=== PATIENT | male | born 1955 | race Caucasian/White ===

== ENCOUNTER 2017-07-09 11:35 | Inpatient (IN) | payer OTHER ==
[2017-07-08 13:03] LABS: HEMATOCRIT 48.1 % (39.2-51.8); HEMOGLOBIN 16.9 g/dL (13.7-18.0); WHITE BLOOD COUNT 5.4 x10^3/uL (3.4-10)
[2017-07-08 13:15] LABS: BLOOD UREA NITROGEN 11 mg/dL (7-18)
[~2017-07-09] VITALS: Ht 167.6 cm; Wt 94.9 kg
[~2017-07-09 11:35] MED LIST: IBUP200C8 PO; VITA1CAP PO; magnesium PO; potassium PO
[2017-07-09] MEDS ORDERED: ROPivacaine/PF 0.2%, 10 ML ONE (12:51)
[2017-07-09] MEDS ORDERED: KETOROLAC 60 MG/2 ML ONE (12:51)
[2017-07-09] MEDS ORDERED: TRANEXAMIC ACID 100 MG/ML, 10ML ONE ×2 (12:51→15:36)
[2017-07-09] MEDS ORDERED: morphine SULFATE/PF 1 MG/ML, 10ML ONE (12:52)
[2017-07-09] MEDS ORDERED: EPINEPHRINE 1 MG/ML, 1ML ONE (12:52)
[2017-07-09] MEDS ORDERED: LACTATED RINGERS 1,000 ML IV SCH (14:49)
[2017-07-09] MEDS ORDERED: VANCOMYCIN PER PHARMACY MC ONE (14:49)
[2017-07-09 14:51] VITALS: BP 159/105
[2017-07-09] MEDS ORDERED: PHARMACOKINETIC CONSULTATION MC ONE (15:00)
[2017-07-09] MEDS ORDERED: VANCOMYCIN 2,000 MG in SODIUM CHLORIDE 0.9% 500 ML IV ONE (15:00)
[2017-07-09] MEDS ORDERED: FENTANYL PF 100 MCG/2ML ONE ×3 (15:09→17:29)
[2017-07-09] MEDS ORDERED: MIDAZOLAM 1 MG/ML, 2ML ONE (15:09)
[2017-07-09] MEDS ORDERED: HYDROcodone/APAP 7.5-325MG/15ML UDC PO PRN (16:00)
[2017-07-09] MEDS ORDERED: MEPERIDINE/PF 25MG/0.5ML IVPush PRN (16:00)
[2017-07-09] MEDS ORDERED: LABETALOL 5MG/ML, 20ML IV PRN (16:00)
[2017-07-09] MEDS ORDERED: METOPROLOL 1 MG/ML, 5ML IV PRN (16:00)
[2017-07-09] MEDS ORDERED: ONDANSETRON 2MG/ML, 2ML IVPush PRN ×2 (16:00→19:00)
[2017-07-09] MEDS ORDERED: ALBUTEROL SULFATE 2.5 MG/3 ML NPPB PRN (16:00)
[2017-07-09] MEDS ORDERED: OXYcodone 5 MG/5 ML ORAL.SOL UDC PO PRN (16:00)
[2017-07-09] MEDS ORDERED: MIDAZOLAM 1 MG/ML, 2ML IV PRN (16:00)
[2017-07-09] MEDS ORDERED: ACETAMINOPHEN 325 MG TABLET PO PRN ×2 (16:00→19:00)
[2017-07-09] MEDS ORDERED: PROMETHAZINE 25 MG/ML, 1ML IV PRN (16:00)
[2017-07-09] MEDS ORDERED: DIAZEPAM 5 MG/ML, 2ML IVPush PRN (16:00)
[2017-07-09] MEDS ORDERED: EPHEDRINE 50 MG/ML, 1ML IVPush PRN (16:00)
[2017-07-09] MEDS ORDERED: hydrALAzine 20 MG/ML, 1ML IV PRN (16:00)
[2017-07-09] MEDS ORDERED: DEXAMETHASONE 4 MG/ML, 1ML ONE (16:46)
[2017-07-09] MEDS ORDERED: CEFAZOLIN 1,000 MG ONE (16:46)
[2017-07-09] MEDS ORDERED: ONDANSETRON 2MG/ML, 2ML ONE ×2 (16:46→18:11)
[2017-07-09] MEDS ORDERED: PROPOFOL 10 MG/ML, 20ML ONE (16:46)
[2017-07-09] MEDS ORDERED: ACETAMINOPHEN 650 MG/20.3 ML UDC ONE (17:29)
[2017-07-09] MEDS: FENTANYL PF 100 MCG/2ML IV PRN ×2 (17:30→17:40)
[2017-07-09] MEDS ORDERED: OXYcodone 5 MG/5 ML ORAL.SOL UDC ONE (17:30)
[2017-07-09] MEDS ORDERED: HYDROmorphone 1 MG/ML, 1ML ONE (17:47)
[2017-07-09] MEDS: HYDROmorphone 1 MG/ML, 1ML IV PRN ×2 (17:49→17:55)
[2017-07-09 19:00] VITALS: BP 122/78
[2017-07-09] MEDS ORDERED: CEFAZOLIN PMX 2GM/50ML 50 ML IVPB SCH (19:00)
[2017-07-09] MEDS ORDERED: MAGNESIUM HYDROXIDE 8%, 30ML UDC PO PRN (19:00)
[2017-07-09] MEDS ORDERED: PROMETHAZINE 25 MG/ML, 1ML IM PRN (19:00)
[2017-07-09] MEDS ORDERED: DIPHENHYDRAMINE 25 MG CAPSULE PO PRN (19:00)
[2017-07-09] MEDS ORDERED: LORazepam 2 MG/ML, 1ML IV PRN (19:00)
[2017-07-09] MEDS ORDERED: PROMETHAZINE 25 MG SUPP PR PRN (19:00)
[2017-07-09] MEDS ORDERED: HYDROcodone/APAP 5/325 TABLET PO PRN (19:00)
[2017-07-09] MEDS ORDERED: ALUMINUM/MAG/SIMETHICONE 30 ML UDC PO PRN (19:00)
[2017-07-09] MEDS ORDERED: BISACODYL 10 MG SUPP PR PRN (19:00)
[2017-07-09] MEDS ORDERED: ONDANSETRON ODT 4 MG PO PRN (19:00)
[2017-07-09] MEDS ORDERED: TRANEXAMIC ACID 1,000 MG in SODIUM CHLORIDE 0.9% 100 ML IVPB ONE (19:00)
[2017-07-09] MEDS ORDERED: LORazepam 1MG TABLET PO PRN (19:00)
[2017-07-09] MEDS ORDERED: morphine SULFATE 10 MG/ML, 1ML IV PRN (19:00)
[2017-07-09] MEDS ORDERED: SENNA/DOCUSATE TABLET PO PRN (19:00)
[2017-07-09] MEDS ORDERED: SCOPOLAMINE 1MG PATCH TD SCH (19:00)
[2017-07-09] MEDS: DOCUSATE 100 MG CAPSULE PO SCH (22:22)
[2017-07-09] MEDS: OXYcodone IR 5MG TABLET PO PRN (22:23)
[2017-07-09] MEDS: DIAZEPAM 5 MG TABLET PO PRN (22:23)
[2017-07-09] MEDS: D5%-LACTATED RINGERS 1,000 ML IV SCH (22:26)
[2017-07-09] MEDS: SODIUM CHLORIDE FLUSH 10ML SYR IVF SCH (22:32)
[2017-07-09 23:09] VITALS: BP 135/77
[2017-07-09] MEDS ORDERED: SCOPOLAMINE PATCH, 1.5MG PATCH.TD72 TD SCH (23:30)
[2017-07-10 03:00] VITALS: BP 102/67
[2017-07-10 05:59] LABS: HEMATOCRIT 41.5 % (39.2-51.8); HEMOGLOBIN 14.6 g/dL (13.7-18.0)
[2017-07-10] MEDS ORDERED: ASPIRIN 325 MG TABLET EC PO SCH (06:00)
[2017-07-10 06:35] VITALS: BP 91/51
[2017-07-10] MEDS: D5%-LACTATED RINGERS 1,000 ML IV SCH (09:00)
[2017-07-10] MEDS: SODIUM CHLORIDE FLUSH 10ML SYR IVF SCH (09:00)
[2017-07-10] MEDS ORDERED: MULTIVITAMINS/MINERALS TABLET PO SCH (09:00)
[2017-07-10] MEDS: DOCUSATE 100 MG CAPSULE PO SCH (09:01)
[2017-07-10] MEDS: OXYcodone IR 5MG TABLET PO PRN (09:02)
[2017-07-10] MEDS: DIAZEPAM 5 MG TABLET PO PRN (09:02)
[2017-07-10] MEDS ORDERED: OXYC5CAP2 PO (12:04)
[2017-07-10] MEDS ORDERED: ONDA4TAB7 PO (12:05)
[2017-07-10] MEDS ORDERED: DIAZ5TAB PO (12:06)
[2017-07-10] MEDS ORDERED: ASPIRIN PO (12:06)
[2017-07-10 12:17] VITALS: BP 128/81
[2017-07-10] MEDS ORDERED: KETOROLAC 30 MG/1 ML IV SCH (19:00)
== END 2017-07-10 12:30 | disposition home or self-care (01) | DRG 470 ==
LOC: ORIP 14:35 → 4NOR 18:29 → DCLOUNGE 07-10 12:03
PROVIDERS: ADMIT Orthopaedic Surgery; ATTEND Orthopaedic Surgery
PROC: 0SRD0J9 Replacement of Left Knee Joint with Synthetic Substitute, Cemented, Open Approach (ICD-10-PCS; principal; 2017-07-09 16:15)
DX: M17.12 Unilateral primary osteoarthritis, left knee (principal)
CPT/HCPCS: 36415; 80048; 81003; 83036; 85014; 85018; 85025; 85610; 85730; 87081; 87147; 93005; J0171; J0690; J1100; J1170; J1885; J2250; J2274; J2405; J2704; J2795; J3010; J3370; Q0162; J7040; J7120; J7121